=== PATIENT | female | born 1970 | race Caucasian/White ===

== ENCOUNTER → 2020-09-30 | Outpatient (CLI) | payer OTHER ==
[~2020-09-30] VITALS: Ht 160 cm; Wt 97.1 kg
== END ==
LOC: OPSV 09:51
DX: R53.83 Other fatigue (principal); D50.9 Iron deficiency anemia, unspecified; M06.9 Rheumatoid arthritis, unspecified; R06.02 Shortness of breath
CPT/HCPCS: 96365; J1756

== ENCOUNTER → 2020-10-02 | Outpatient (CLI) | payer OTHER ==
[~2020-10-02] VITALS: Ht 160 cm; Wt 97.1 kg
== END ==
LOC: OPSV 10:00
DX: R53.83 Other fatigue (principal); D50.9 Iron deficiency anemia, unspecified; M06.9 Rheumatoid arthritis, unspecified; R06.02 Shortness of breath
CPT/HCPCS: 96365; J1756

== ENCOUNTER → 2020-10-04 | Outpatient (CLI) | payer OTHER ==
[~2020-10-04] VITALS: Ht 160 cm; Wt 97.1 kg
== END ==
LOC: OPSV 10:00
DX: D50.9 Iron deficiency anemia, unspecified (principal); R53.83 Other fatigue; M06.9 Rheumatoid arthritis, unspecified; R06.02 Shortness of breath
CPT/HCPCS: 96365; J1756

== ENCOUNTER → 2020-10-08 | Outpatient (CLI) | payer OTHER ==
[~2020-10-08] VITALS: Ht 160 cm; Wt 97.1 kg
== END ==
LOC: OPSV 09:58
DX: D50.9 Iron deficiency anemia, unspecified (principal); R53.83 Other fatigue; M06.9 Rheumatoid arthritis, unspecified; R06.02 Shortness of breath
CPT/HCPCS: 96365; J1756

== ENCOUNTER → 2020-10-11 | Outpatient (CLI) | payer OTHER ==
[~2020-10-11] VITALS: Ht 160 cm; Wt 97.1 kg
== END ==
LOC: OPSV 10:34
DX: D50.9 Iron deficiency anemia, unspecified (principal); M06.9 Rheumatoid arthritis, unspecified; R06.02 Shortness of breath; R53.83 Other fatigue
CPT/HCPCS: 96365; J1756

== ENCOUNTER → 2020-12-18 | Outpatient (CLI) | payer OTHER | LOC: NM 09:00 | DX: R10.84 Generalized abdominal pain (principal); R14.0 Abdominal distension (gaseous); R10.13 Epigastric pain; K21.9 Gastro-esophageal reflux disease without esophagitis; R11.0 Nausea | CPT/HCPCS: 78264; A9541 ==

== ENCOUNTER → 2021-01-17 | Outpatient (CLI) | payer OTHER | LOC: EXRD 11:16 | DX: M25.552 Pain in left hip (principal); M54.2 Cervicalgia; M54.9 Dorsalgia, unspecified; M25.511 Pain in right shoulder; M25.512 Pain in left shoulder; M54.5 Low back pain; M47.816 Spondylosis without myelopathy or radiculopathy, lumbar region; M19.012 Primary osteoarthritis, left shoulder; M19.011 Primary osteoarthritis, right shoulder | CPT/HCPCS: 72040; 72070; 72100; 73030; 73522 ==

== ENCOUNTER → 2021-09-18 | Outpatient (CLI) | payer OTHER | LOC: EXRD 11:26 | DX: R05.9 Cough, unspecified (principal) | CPT/HCPCS: 71046 ==

== ENCOUNTER → 2021-12-09 | Outpatient (CLI) | payer OTHER | LOC: EXRD 10:22 | DX: M54.16 Radiculopathy, lumbar region (principal) | CPT/HCPCS: 72100 ==